=== PATIENT | female | born 1955 | race Caucasian/White ===

== ENCOUNTER 2016-05-19 07:13 | Outpatient (CLI) | payer OTHER ==
[2016-01-07 17:26] VITALS: BP 116/70
[2016-05-19 08:20] LABS: eGFR (African) > 60; eGFR (Non-African) > 60
[2016-05-19 16:45] LABS: T3 FREE 3.12 pg/mL (2.00-4.40); VITAMIN D, 25-HYDROXY 17 ng/mL (30-100)
== END 2016-05-19 07:14 ==
LOC: LAB 07:13
PROVIDERS: ATTEND Family Medicine
DX: E55.9 Vitamin D deficiency, unspecified (principal); I48.0 Paroxysmal atrial fibrillation
CPT/HCPCS: 36415; 80053; 80061; 82306; 82607; 84439; 84443; 84481; 86376; 86800